=== PATIENT | female | born 1995 | race Caucasian/White ===

== ENCOUNTER 2022-02-03 02:30 | Emergency (ER) | payer BC, SELFPAY ==
[2022-02-03 02:38] VITALS: BP 128/81; PULSE 111; RESP 24; TEMP 36.8; O2SAT 95
--- NOTE | 2022-02-03 03:03 | ED_ITS ---
HPI - Asthma General Time Seen by Provider: 03:03 Date Seen: 02/03/22 Chief Complaint: Asthma Stated Complaint: Asthma attack Time Seen by Provider: 02/03/22 03:03 Source: patient, RN notes reviewed and old records reviewed Mode of arrival: ambulatory Limitations: no limitations History of Present Illness HPI Narrative: Linda is a very pleasant 26-year-old female with a known history of asthma and recent challenges obtaining her asthma rescue inhaler who comes to the emergency room for evaluation of difficulty breathing. Patient noted that she has been experiencing environmental allergies and approximately 3 days ago noticed increased work of breathing and wheezing. Last week she had run out of her inhalers and had multiple attempts at contacting her clinic. She was supposed to have had the inhaler by January 29 and then again today but was unable to get them. She initially went to the [facility] ED but because of the wait elected to come down to [place]. She denies a fever or chills. She denies any vomiting. She denies any possibility of . She denies chest pain or cough production. MD complaint: asthma attack Onset (ago): day(s) Severity: moderate Context: ran out of meds Related Data Current Asthma Therapy: inhaled bronchodilator and inhaled steroid Home Medications Medication Instructions Recorded Confirmed albuterol sulfate 2.5 mg/3 mL 2.5 mg inhalation Q4H PRN 12/12/21 12/12/21 (0.083 %) solution for nebulization albuterol sulfate 90 mcg/actuation 2 puff inhalation Q4H PRN 12/12/21 12/12/21 aerosol inhaler (ProAir HFA) fluticasone 250 mcg-salmeterol 50 1 inh inhalation Q12H 12/12/21 12/12/21 mcg/dose blistr powdr for inhalation (Wixela Inhub) Previous Rx's Medication Instructions Recorded albuterol sulfate 90 mcg/actuation 2 puff inhalation QID PRN 02/03/22 aerosol inhaler shortness of breath or wheezing #8.5 grams prednisone 20 mg tablet 20 mg PO BID #8 tabs 02/03/22 Allergies Allergy/AdvReac Type Severity Reaction Status Date / Time ethinyl estradiol Allergy Mild Congested Verified 12/12/21 11:51 [From Seasonale (91)] levonorgestrel Allergy Mild Congested Verified 12/12/21 11:51 [From Seasonale (91)] Bananas Allergy Intermediate itchy Uncoded 12/12/21 11:51 throat Review of Systems Status of ROS Reports: 6 or more systems reviewed and unremarkable except as noted in History and below Const Denies: fever or chills ENMT Denies: throat pain or difficulty swallowing Cardio Reports: shortness of breath with exertion; Denies: chest pain or swelling of feet/ankles Resp Reports: shortness of breath, cough and wheezing GI Denies: abdominal pain, nausea, vomiting or difficulty swallowing Allergy/Immuno Reports: wheezing PFSH PFS Social History Smoking Status: Former smoker Do you use any of these nicotine containing products: None Second hand tobacco smoke exposure: No How often do you have a drink containing alcohol: monthly or less How often do you have six or more drinks on one occasion: Less than monthly AUDIT-C Alcohol total score: 2 Non-prescribed substance use: denies use Little interest or pleasure in doing things: not at all Feeling down, depressed, or hopeless: not at all service: No Exam Narrative: Exam Narrative: Past medical history: Tobacco use Asthma Family history: For patient healthy Social history: Occasional alcohol use, has quit smoking. No drug use. Works at [employer] in [place] Const: Vital Signs, click to edit/add: Vital Signs - 24 hr 02/03/22 02:38 02/03/22 04:20 Temperature 98.2 F 98.1 F Pulse Rate [Right Pulse Oximeter] 111 H 95 Respiratory Rate 24 18 Blood Pressure [Ri ght Upper Arm] 128/81 Pulse Oximetry 95 Oxygen Delivery Me thod Room Air Documenting provider has reviewed patient's vital signs: yes Common normals: no apparent distress, oriented x3 and no limitations General appearance: cooperative and comfortable HENMT: Common normals: normocephalic, external ears normal and external nose normal Head and scalp: normocephalic Face and sinus: normal facial exam Nose: external nose normal External ear: external ears normal Mouth: oral and palatal mucosa normal Eye: General eye: normal appearance of both eyes Chest: Chest: symmetrical chest wall rise Resp: Common normals: no use of accessory muscles Effort & inspection: symmetric chest movement, tachypneic and decreased respiratory effort Auscultation: wheezes; no crackles Cardio: Common normals: regular rhythm Rate: tachycardic Rhythm: regular rhythm GI: Common normals: soft to palpation Palpation: soft Extremity: Common normals: no pedal edema Neuro: Common normals: oriented x3 Psych: Common normals: mental status grossly normal Course Course Hospital Course: At this time differential diagnosis includes but is not limited to asthma ex acerbation, bronchitis, pneumonia, COVID. Patient will start with a DuoNeb, 60 mg of prednisone p.o.. Will also do a chest x-ray and a COVID swab. Reevaluation(s) Reevaluation #1: Patient is remarkably improved after DuoNeb with clear lung sounds bilaterally. Vital Signs Vital signs: Initial Vital Signs Temperature 98.2 F 02/03/22 02:38 Temperature Source Temporal Artery Scan 02/03/22 02:38 Pulse Rate 111 H 02/03/22 02:38 Pulse Rhythm 02/03/22 02:38 Respiratory Rate 24 02/03/22 02:38 Blood Pressure 128/81 02/03/22 02:38 Blood Pressure Mean 96 02/03/22 02:38 Blood Pressure Position Sitting 02/03/22 02:38 Pulse Oximetry 95 02/03/22 02:38 Oxygen Delivery Method 02/03/22 02:38 Vital Signs Temperature 98.2 F 02/03/22 02:38 Pulse Rate 111 H 02/03/22 02:38 Respiratory Rate 24 02/03/22 02:38 Blood Pressure 128/81 02/03/22 02:38 Pulse Oximetry 95 02/03/22 02:38 Oxygen Delivery Method 02/03/22 02:38 Temperature 98.1 F 02/03/22 04:20 Pulse Rate 95 02/03/22 04:20 Respiratory Rate 18 02/03/22 04:20 Blood Pressure 128/81 02/03/22 02:38 Pulse Oximetry 95 02/03/22 02:38 Oxygen Delivery Method 02/03/22 02:38 MDM - Asthma MDM Narrative Medical decision making narrative: 1. Asthma [id number] is negative for pneumonia and COVID is negative. patient was unable to obtain her rescue inhaler refill last week and has been dealing with increased environmental allergies. She has continued to use inhaled steroids. She is remarkably better after a duo nebulizer here in the emergency room. She also received 60 mg of p.o. prednisone. Will have her continue the prednisone at 20 mg p.o. b.i.d. starting tomorrow morning. This will go on for 4 days. Also will call in an inhaler for her to the [facility] on [address] in [place]. 2. Disposition-home. Return as needed. Medical Records Attestation: I reviewed the patient's medical records. Lab Data Attestation: I reviewed the patient's lab results. Labs: Lab Results 02/03/22 Range/Units 03:09 SARS-CoV-2 (PCR) Negative SARS-CoV-2 (Negative) Influenza Type A (PCR) Negative PCR FLU A (Negative) Influenza Type B (PCR) Negative PCR FLU B (Negative) Imaging Data Chest x-ray: Attestation: I have reviewed the pertinent imaging results. My impression: Questionable increased perihilar lung markings. Radiologist's impression: No acute findings Discharge Plan Discharge Clinical Impression: Asthma with acute exacerbation Patient Disposition: Home, Self-Care Condition: Improved Additional Instructions: Continue prednisone starting tomorrow morning 20 mg twice daily for 4 days. Albuterol inhaler as rescue. Seek medical attention for worsening symptoms. Prescriptions: New prednisone 20 mg tablet 20 mg PO BID Qty: 8 0RF albuterol sulfate 90 mcg/actuation HFA aerosol inhaler 2 puff inhalation QID PRN (Reason: shortness of breath or wheezing) Qty: 8.5 1RF No Action albuterol sulfate [ProAir HFA] 90 mcg/actuation HFA aerosol inhaler 2 puff inhalation Q4H PRN fluticasone propion-salmeterol [Wixela Inhub] 250-50 mcg/dose blister with device 1 inh inhalation Q12H albuterol sulfate 2.5 mg /3 mL (0.083 %) solution for nebulization 2.5 mg inhalation Q4H PRN Follow Up/Referrals: Luba Montesinos PA-C [Primary Care Provider] - Stand Alone Forms: [email or web address] Info Instructions
--- NOTE | 2022-02-03 03:09 | CRLHL7_ITS ---
For Patients: As a result of the Century Cures Act, medical imaging exams and procedure reports are released immediately into your electronic medical record. You may view this report before your referring provider. If you have questions, please contact your health care provider. HISTORY: Asthma flare. COMPARISON: Chest two views from 01/24/2020 FINDINGS: A portable erect AP view of the chest was obtained at 0329 hours. The lungs remain clear. No focal or diffuse infiltrates are present. The heart remains normal in size. The mediastinum is normal in appearance. The osseous structures are normal in appearance for the patient`s age. IMPRESSION: Normal portable chest single view. Dictated by Kendall Merino MD @ 02/03/2022 3:52:36 AM (Electronically Signed)
[2022-02-03] MEDS: IPRAT-ALBUT 0.5-2.5 MG/3 ML NEB 1 NEB IH (03:14)
[2022-02-03] MEDS: predniSONE 20 MG TABLET 60 MG PO (03:23)
[2022-02-03 04:00] LABS: PCR FLU A Negative PCR FLU A (Negative); PCR FLU B Negative PCR FLU B (Negative)
[2022-02-03 04:11] LABS: SARS PCR* Negative SARS-CoV-2 (Negative)
[2022-02-03 04:20] VITALS: PULSE 95; RESP 18; TEMP 36.7
== END 2022-02-03 04:21 | disposition home or self-care (01) ==
PROVIDERS: Emergency Provider Family Medicine; PCP Physician Assistant Medical
DX: J45.901 Unspecified asthma with (acute) exacerbation (principal)
CPT/HCPCS: 71045; 87502; 87635; 94640; 99283; 99284; J7512

== ENCOUNTER 2022-04-10 14:02 | Outpatient (CLI) | payer BC, SELFPAY ==
[2022-04-10 17:48] LABS: Hepatitis B Surface Antigen* Negative (Negative)
[2022-04-10 18:06] LABS: Hepatitis C Virus Antibody* Negative (Negative)
[2022-04-10 18:57] LABS: HIV 1/2/P24 Combo Screen* Negative (Negative)
[2022-04-12 21:49] LABS: Rubella Antibody IgG 48.1 IU/mL; Varicella-Zoster Virus Ab, IgG 270.6 IV
[2022-04-13 01:47] LABS: Rapid Plasma Reagin (RPR) Non Reactive (Non Reactive)
== END 2022-04-10 14:03 | disposition home or self-care (01) ==
PROVIDERS: PCP Physician Assistant Medical; Visit Provider Advanced Practice Midwife
DX: Z34.80 Encounter for supervision of other normal pregnancy, unspecified trimester (principal)
CPT/HCPCS: 76817; 86592; 86703; 86762; 86787; 86803; 86850; 86900; 86901; 87086; 87340

== ENCOUNTER 2022-07-09 14:02 | Outpatient (CLI) | payer BC, SELFPAY ==
--- NOTE | 2022-07-09 14:00 | US_ITS ---
Patient: DUDLEY JULES Facility:?[facility] Patient ID:?[id number] Site Patient ID:?[id number]. Site :?[id number] Study:?US-OB Pelvis BFAS-07/09/2022 3:11:03 PM Ordering Physician:?UNKNOWN UNKNOWN Final Report: INDICATION: 27 year-old female. Evaluate anatomy. COMPARISON: April 10, 2022. TECHNIQUE: Real time alva scale imaging of the fetus was performed. FINDINGS: Sonographic imaging demonstrates a single living intrauterine gestation. Fetus demonstrates a regular cardiac rate of 141 beats per minute. Fetus has a vertex orientation and longitudinal lie. The placenta lies anteriorly without evidence of placenta previa. Amniotic fluid volume appears normal. Single deepest vertical pocket: 4.9 cm. The cervix is closed and measures 4.1 cm in length. The composite ultrasound gestational age is calculated at 20 weeks 4 days with an estimated sonographic due date of November 22, 2022. The estimated weight is 370 grams which lies at the 88th percentile. The following biometric measurements were obtained: Biparietal diameter: 4.8 cm/20 weeks 4 days 76% Head circumference: 18.1 cm/20 weeks 3 days 72% Abdominal circumference: 15.5 cm/20 weeks 5 days 72% Femur length: 3.4 cm/20 weeks 5 days 72% The HC/AC ratio measures: 1.16 range (1.07-1.25) On anatomic survey, there is a normal appearance of the cerebral ventricles, cisterna magna and cerebellum. The nose, lips, and facial profile appear normal. The cervical, thoracic and lumbar spine are well visualized and appear normal. There is a normal four-chamber heart view and the left and right ventricular outflow tracts appear normal. diaphragm, stomach, kidneys and bladder appear normal. There is a normal three-vessel cord and cord insertion site. The four extremities appear normal. When compared to the prior study there has been appropriate growth and maturation in the interval. IMPRESSION: Normal OB ultrasound exam with concordance of clinical and sonographic dating. No intrinsic abnormalities noted on anatomic survey. Dictated by Papo Bruce MD @ 07/09/2022 5:05:18 PM Signed by:?Papo Bruce MD @07/09/2022 5:05:18 PM (Electronic Signature)
== END 2022-07-09 14:03 | disposition home or self-care (01) ==
LOC: US 14:03
PROVIDERS: PCP Physician Assistant Medical; Visit Provider Advanced Practice Midwife
DX: Z34.92 Encounter for supervision of normal pregnancy, unspecified, second trimester (principal); Z3A.20 20 weeks gestation of pregnancy
CPT/HCPCS: 76805

== ENCOUNTER 2022-09-03 11:20 | Outpatient (CLI) | payer BC, SELFPAY | END 2022-09-03 11:21 | disposition home or self-care (01) | LOC: NFLDREF 09-06 07:54 | PROVIDERS: PCP Physician Assistant Medical; Referring Provider Physician Assistant Medical; Visit Provider Advanced Practice Midwife | DX: O99.112 Other diseases of the blood and blood-forming organs and certain disorders involving the immune mechanism complicating pregnancy, second trimester (principal); D69.6 Thrombocytopenia, unspecified; Z3A.27 27 weeks gestation of pregnancy | CPT/HCPCS: 86592 ==

== ENCOUNTER 2022-11-18 22:41 | Outpatient (CLI) | payer BC, SELFPAY ==
[2022-11-18 22:52] VITALS: BP 129/80; PULSE 94; RESP 16; TEMP 36.6
[2022-11-18 23:34] LABS: Appearance Urine Clear (Clear); Bilirubin Urine 1+ (Negative); Blood Urine Negative (Negative); Color Urine Amber (Yellow); Glucose Urine Negative (Negative); Ketones Urine Trace (Negative); Leukocyte Esterase Urine Trace (Negative); Nitrite Urine Negative (Negative); Protein Urine 1+ (Negative)
[2022-11-18 23:42] LABS: Yeast No Yeast Seen (None Seen)
[2022-11-18 23:42] LABS: Bacteria Urine Few; RBC Urine 0-2 (0-2); Squamous Epithelial Cell Urine Few (None-Few); WBC Urine 0-2 (0-5)
[2022-11-18 23:43] LABS: Clue Cells <20% Clue Cells Seen (None Seen); Trichomonas No Trichomonas Seen (None Seen)
--- NOTE | 2022-11-19 00:10 | PC.OBNST ---
NST Note NST Note Start: 11/18/22 22:44 Freq: ONCE Status: Active Protocol: Document 11/18/22 23:58 WAYNE (Rec: 11/19/22 00:10 WAYNE [id number]) NST Note 3 Para (# of births) 2 EDC 11/27/22 Gestational Age In Weeks & Days 38 Weeks & 6 Days Patient Presented with Complaint(s) of Other Other Complaints Patient reports pelvic pain and describes it as Fire crouch. Reactive Yes Appropriate for Gestational Age Yes KENDAL Graves RN Date 11/19/22 Reactive Yes Appropriate for Gestational Age Yes KENDAL Plummer RNC Date 11/19/22 OB NST charge Yes Complete NST Note via Write Note Yes The provider's electronic signature indicates the NST is reactive/appropriate for gestational age. *Note to provider: If an addendum is required, open the patient's chart and click on the note under the Nurse/Allied Health tab.
== END 2022-11-19 00:06 | disposition home or self-care (01) ==
LOC: OB OUT 22:42 → OB 22:42
PROVIDERS: PCP Physician Assistant Medical; Visit Provider Advanced Practice Midwife
DX: Z34.93 Encounter for supervision of normal pregnancy, unspecified, third trimester (principal); Z3A.38 38 weeks gestation of pregnancy
CPT/HCPCS: 59025; 81003; 81015; 87086; 87210; 99213

== ENCOUNTER 2024-08-29 14:00 | Outpatient (CLI) | payer BC, SELFPAY | END 2024-08-29 14:01 | disposition home or self-care (01) | PROVIDERS: PCP Physician Assistant Medical; Visit Provider Physician Assistant Medical | DX: R63.5 Abnormal weight gain (principal); Z13.220 Encounter for screening for lipoid disorders | CPT/HCPCS: 80053; 80061; 84443 ==

== ENCOUNTER 2025-02-27 19:49 | Emergency (ER) | payer BC, SELFPAY ==
--- OUTSIDE RECORDS SUMMARY | 2025-02-27 19:52 | XMS_ITS | Clinical Summary ---
Author Organization [facility] Address [address] [place] [id number] Care Team Providers Care Youth Liaison Officer Name Role Phone Maninder Montenegro MD Primary Care Provider + [phone] Allergies No known active allergies Medications CLARITIN REDITABS ORAL 1 po prn 0 02/22/2007 Activ e PROAIR HFA 90 mcg/Actuation inhalerIndicatio ns:Wheezing INHALE 2 TO 4 PUFFS BY MOUTH EVERY 4 HOURS NEEDED 8.5 g 0 06/18/2010 Active FLUoxetine (PROZAC) 20 mg capsule Take 20 mg by mouth every morning. Active trimethoprim-sul famethoxazole, 160-800 mg, (BACTRIM DS) tabletIndication s:Urinary tract infection without hematuria, site unspecified Take 1 tablet by mouth 2 times daily. One po bid 20 tablet 04/21/2016 Active Active Problems Problem Noted Date Diagnosed Date Wheezing 10/10/2007 Allergic rhinitis, cause unspecified 09/12/2006 Immunizations Immunization Administration Dates Next Due DTaP 02/02/2002, 9,1997,1997, 1997 HIB PRP-OMP (PedvaxHIB) 06/19/1998,1997,,1997 Hepatitis B (Peds) 1997,1997, 997 Inactivated Polio Vaccine 02/02/2002 Influenza, IIV3 (Age >=3 years) 07/23/2006 MMR 02/02/2002,06/19/1998 Oral Polio Vaccine 06/19/1998,1997, 997 Family History Relation Name Status Comments Mother Radha Alive Social History Tobacco Use Types Packs/Day Years Used Date Smoking Tobacco: Never Tobacco Cessation:Counseling Given: No Alcohol Use Standard Drinks/Week Comments No 0 (1 standard drink = 0.6 oz pur e alcohol) Comments No Sex and Gender Information Value Date Recorded Sex Assigned at Not on file Legal 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 Gender Identity Not on file Sexual Orientation Not on file Obstetrics History Last Filed Vital Signs Vital Sign Reading Time Taken Comments Blood Pressure 113/72 04/21/2016 6:47 PM COMMUNITY DEVELOPMENT WORKER Pulse 78 04/21/2016 6:47 PM COMMUNITY DEVELOPMENT WORKER Temperature 36.7 C (98 F) 04/21/2016 6:47 PM COMMUNITY DEVELOPMENT WORKER Respiratory Rate 12 04/21/2016 6:47 PM COMMUNITY DEVELOPMENT WORKER Oxygen Saturation 99% 04/21/2016 6:47 PM COMMUNITY DEVELOPMENT WORKER Inhaled Oxygen Concentration - - Weight 69.9 kg (154 lb) 04/21/2016 6:47 PM COMMUNITY DEVELOPMENT WORKER Height 167.6 cm (5' 6) 04/21/2016 6:47 PM COMMUNITY DEVELOPMENT WORKER Body Mass Index 24.86 04/21/2016 6:47 PM COMMUNITY DEVELOPMENT WORKER Plan of Treatment Health Maintenance Due Date Last Done Comments Tetanus booster 2008 Depression screening for age 12+ 2009 HIV for age 15-65 2012 Hepatitis C screening for ag e 18-79 2015 BMI (ht and wt on same day) for age 18+ 04/21/2017 04/21/2016 HPV series for age 9-45 (1 - 3-dose SCDM series) 2024 COVID-19 vaccine series (2023- season) 2025 Influenza Vaccine (#1) 2025 07/23/2006 Pap test for age 21-65 01/06/2026 , 09/19/2018, 09/19/2018 RSV vaccine for adults or (1 - 1-dose 75+ series) 2072 Hepatitis B series for 19+ Completed 09/03, 1997, 1997 Pneumococcal series for age 6-49 Aged Out No longer eligible b ased on patient's age to complete this topic Procedures Procedure Name Priority Date/Time Associated Diagnosis Comments HPV HIGH RISK Routine 01/06/2023 2:15 PM CDT from Last 3 Months or Most Recently Relevant to Health Maintenance Results * HPV HIGH RISK (01/06/2023 2:15 PM CDT) TYPE 16 Negative Negative 01/12/2023 1:49 PM CDT [facility] TYPE 18 Negative Negative 01/12/2023 1:49 PM CDT [facility] OTHER HIGH RISK TYPES Negative Negative 01/12/2023 1:49 PM CDT [facility] Other (Cervical) 01/06/2023 2:15 PM CDT 01/08/2023 5:22 PM CDT Narrative [facility] - 01/12/2023 1:49 PM CDT HPV types 16, 18, 31, 33, 35, 39, 45, 51, 52, 56, 58, 59, 66 and 68 DNA were undetectable or below the pre-set threshold. Methodology: Cuca Pawel 4800 HPV Test Amrita ROSALES MICROBIOLOGY Final Resu lt [facility] [address] [place] [address], from Last 3 Months or Most Recently Relevant to Health Maintenance Insurance [facility] Care Teams Youth Liaison Officer Relationship Specialty Start Date End Date Maninder Montenegro MD PCP - General 08/30/14
--- OUTSIDE RECORDS SUMMARY | 2025-02-27 19:52 | XMS_ITS | Clinical Summary ---
Author Organization [place] Address [address] [place] [id number] Care Team Providers Care General Car Supervisor Yard Name Role Phone Clinic, [facility] Primary Care Provider Allergies Active Allergy Reactions Criticality Noted Date Comments Banana 05/19/2021 Cats 04/01/2012 Mold 04/01/2012 Pollen Extract 04/01/2012 Seasonal Allergies 04/01/2012 Medications Loratadine (CLARITIN PO) Take by mouth. A ctive albuterol (2.5 MG/3ML) 0.083% nebulizer solutionIndicati ons:Mild persistent asthma with exacerbation Take 3 mLs by nebulization every 6 hours as needed for shortness of breath / dyspnea. 30 vial 0 2 Active albuterol (PROAIR HFA/PROVENTIL HFA/VENTOLIN HFA) 108 (90 Base) MCG/ACT inhalerIndicatio ns:Mild persistent asthma Inhale 2 puffs into the lungs every 6 hours 8.5 g 9 Active fluticasone-salm eterol (ADVAIR) 100-50 MCG/DOSE inhaler Inhale 1 puff into the lungs every 12 hours Active WIXELA INHUB 250-50 MCG/DOSE inhaler INHALE 1 PUFF BY MOUTH TWICE DAILY 1 Active Active Problems Problem Noted Date Diagnosed Date Late care affecting 1 ASCUS with positive high risk HPV cervical 09/19 Overview (07/01/2022): 09/19/2018 ASCUS +HPV - no colpo done - repeat Pap/HPV 05/21/2021 NIL pap, Neg HPV (age 26). Plan pap in 1 year 05/08/22 Reminder letter 06/05/2022 Reminder call - lm 07/01/2022 Lost to follow-up for pap tracking Other persistent mood (affective) disorders 10/13 Suicide attempt 11/08/2015 Suicidal behavior 11/05/2015 Mild persistent asthma 04/05/2012 Environmental allergies 04/05/2012 Immunizations Immunization Administration Dates Next Due DTAP (<7y) 02/02/2002, 9,1997,1997,1997 HIB (PRP-T) 1997,1997,1997 HepB 1997, 8,1997,1996 Influenza (IIV3) PF 07/23/2006 Influenza Vaccine >6 months,quad, PF 05/21/2021 MMR (MMRII) 02/02/2002,06/19/1998 Pneumococcal 23 valent 11/06/2015 Poliovirus, inactivated (IPV) 02/02/2002 ,06/19/1998,1997,1996 TDAP (Adacel,Boostrix) 01/28/2010 Varicella (Varivax) 03/03/2010,01/28/2010 Family History Medical History Relation Comments Family History Negative Father Diabetes Maternal Grandfather Family History Negative Mother Anxiety Disorder Paternal Grandmother Relation Status Comments Father Alive Maternal Grandfather Mother Alive Paternal Grandmother Social History Tobacco Use Types Packs/Day Years Used Date Smoking Tobacco: Former Smokeless Tobacco: Never Tobacco Cessation:Counseling Given: No Alcohol Use Standard Drinks/Week Comments No 0 (1 standard drink = 0.6 oz pur e alcohol) PHQ-2 Answer Date Recorded PHQ-2 Score 0 05/19/2021 Adolescent Education Answer Date Record ed Getting School Help Needed Not on file 03/15 Comments No Sex and Gender Information Value Date Recorded Sex Assigned at Not on file Legal Sex Female 3:32 AM BUSINESS RISK CONSULTANT Gender Identity Not on file Sexual Orientation Not on file 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 Not on file Not on file Last Filed Vital Signs Vital Sign Reading Time Taken Comments Blood Pressure 124/76 02/03/2022 1:06 AM CDT Pulse 105 02/03/2022 1:06 AM CDT Temperature 36.8 C (98.3 F) 02/03/2022 1:06 AM CDT Respiratory Rate 18 02/03/2022 1:06 AM CDT Oxygen Saturation 97% 02/03/2022 1:06 AM CDT Inhaled Oxygen Concentration - - Weight 75.7 kg (166 lb 14.4 oz) 05/21/2021 8:36 AM BUSINESS RISK CONSULTANT Height 167.6 cm (5' 6) 06/24/2017 11:4 4 AM BUSINESS RISK CONSULTANT Body Mass Index 26.94 06/24/2017 11:44 AM BUSINESS RISK CONSULTANT Plan of Treatment Health Maintenance Due Date Last Done Comments ADVANCE CARE PLANNING 1997 ANNUAL REVIEW OF HM ORDERS 1997 YEARLY PREVENTIVE VISIT 2000 ASTHMA ACTION PLAN 07/29/2013 07/29/2012, 04/05/2012 PNEUMOCOCCAL VACCINE: PEDIATRICS (0 to 5 YEARS) AND AT-RISK PATIENTS (6 to 49 YEARS) (2 of 2 - PCV) 11/05/2016 11/06/2015 ASTHMA CONTROL TEST 11/28/2018 05/30/2018 PAP FOLLOW-UP 05/21/2022 05/21/2021, 040 01/2019, 09/19/2018 PHQ-2 (once per calendar year) 2024 05/19/2021 COVID-19 VACCINE ( - season) 2025 INFLUENZA VACCINE (#1) 2025 05/21/2021, 2006 DTAP/TDAP/TD VACCINE (8 - Td or Tdap) 06/29/2028 06/29/2018, 01/28/2010, 02/02/2002, Additional history exists ZOSTER VACCINE (1 of 2) 2047 HEPATITIS B VACCINE Completed 1997, 1997, 1997, Additional history exists CHLAMYDIA SCREENING Discontinued 05/21/2021 HEPATITIS C SCREENING Completed 05/21/2021 HIV SCREENING Completed 05/21/2021 PAP Discontinued 05/21/2021, 04/0 01/2019, 09/19/2018 HPV VACCINE (No Doses Required) Completed MENINGITIS VACCINE Aged Out No longer eligible based on patient's age to complete this topic Procedures Procedure Name Priority Date/Time Associated Diagnosis Comments GYNECOLOGIC CYTOLOGY Routine 05/21/2021 9:19 AM BUSINESS RISK CONSULTANT Screening for malignant neoplasm of cervix ASCUS with positive high risk HPV cervical CHLAMYDIA TRACHOMATIS PCR Routine 05/21/2021 9:19 AM BUSINESS RISK CONSULTANT Screen for STD (sexually transmitted disease) HIV ANTIGEN ANTIBODY COMBO Routine 05/21/2021 9:19 AM BUSINESS RISK CONSULTANT Supervision of high risk in second trimester Anxiety in , antepartum HEPATITIS C ANTIBODY Routine 05/21/2021 9:19 AM BUSINESS RISK CONSULTANT Supervision of high risk in second trimester Anxiety in , antepartum ASTHMA ACTION PLAN Routine 07/29/2012 from Last 3 Months or Most Recently Relevant to Health Maintenance Results * HIV Antigen Antibody Combo (05/21/2021 9:19 AM BUSINESS RISK CONSULTANT) HIV Antigen Antibody Combo Nonreactive Nonreactive 05/21/2021 4:00 PM BUSINESS RISK CONSULTANT [facility] Comment:HIV-1 p24 Ag & HIV-1 /HIV-2 Ab Not Detected Blood STRUCTURE OF RIGHT UPPER LIMB / Unknown Venipuncture / Unknown 05/21/2021 9:19 AM BUSINESS RISK CONSULTANT 05/21/2021 9:19 AM BUSINESS RISK CONSULTANT us Tay Gupta MD LAB - BLOOD ORDERABLES Final R esult [facility] Special[facility] Core Lab [address], [address] [place] [address], [facility] [phone] * Pap imaged thin layer screen with HPV - recommended age 30 - 65 (05/21/2021 9:19 AM BUSINESS RISK CONSULTANT) Interpretation Negative for Intraepithelial Lesion or Malignancy (NILM) 05/23/2021 12:44 PM BUSINESS RISK CONSULTANT [facility] at 1244 BUSINESS RISK CONSULTANT Comment Papanicolaou Test Limitations: Cervical cytology is a screening test with limited sensitivity, and regular screening is critical for cancer prevention. Pap tests are primarily effective for the diagnosis/prevent ion of squamous cell carcinoma, not adenocarcinoma or other cancers. 05/23/2021 12:44 PM BUSINESS RISK CONSULTANT [facility] Specimen Adequacy Satisfactory for evaluation, endocervical/martinez sformation zone component absent 05/23/2021 12:44 PM BUSINESS RISK CONSULTANT [facility] Clinical Information 05/23/2021 12:44 PM BUSINESS RISK CONSULTANT [facility] LMP/Menopause Date 01/23/2021 05/23/2021 12:44 PM BUSINESS RISK CONSULTANT [facility] Reflex Testing Yes regardless of result 05/23/2021 12:44 PM BUSINESS RISK CONSULTANT [facility] Previous Abnormal? Yes 05/23/2021 12:44 PM BUSINESS RISK CONSULTANT [facility] Previous Abnormal Diagnosis ASCUS pap and HPV 05/23/2021 12:44 PM BUSINESS RISK CONSULTANT [facility] Performing Labs The technical component of this testing was completed at [facility] 05/23/2021 12:44 PM BUSINESS RISK CONSULTANT [facility] Brushing CERVIX UTERI STRUCTURE / Unknown 05/21/2021 9:19 AM BUSINESS RISK CONSULTANT 05/21/2021 12:06 PM BUSINESS RISK CONSULTANT Tay Gupta MD LAB - BEAKER AP Final Result [facility] [address] [place] [id number], [facility] [phone] * Hepatitis C antibody (05/21/2021 9:19 AM BUSINESS RISK CONSULTANT) Hepatitis C Antibody Nonreactive Nonreactive 05/21/2021 4:00 PM BUSINESS RISK CONSULTANT [facility] Blood STRUCTURE OF RIGHT UPPER LIMB / Unknown Venipuncture / Unknown 05/21/2021 9:19 AM BUSINESS RISK CONSULTANT 05/21/2021 9:19 AM BUSINESS RISK CONSULTANT Narrative [facility] - 05/21/2021 4:00 PM BUSINESS RISK CONSULTANT Assay performance characteristics have not been established for newborns, infants, and children. Tay Gupta MD LAB - BLOOD ORDERABLES Final R esult [facility] Special[facility] Lab [address], [address] [place] [address], [facility] [phone] * CHLAMYDIA TRACHOMATIS PCR (05/21/2021 9:19 AM BUSINESS RISK CONSULTANT) Chlamydia trachomatis Negative Negative 05/22/2021 12:30 PM BUSINESS RISK CONSULTANT [facility] Comment:A negative result by clerical adjuster mediated amplification does not preclude the presence of C. trachomatis infection because results are dependent on proper and adequate collection, absence of inhibitors and sufficient rRNA to be detected. Swab CERVIX UTERI STRUCTURE / Unknown Non-blood Collection / Unknown 05/21/2021 9:19 AM BUSINESS RISK CONSULTANT 05/21/2021 12:07 PM BUSINESS RISK CONSULTANT us Tay Gupta MD LAB - MICRO GENERAL ORDERABLES Final Result [facility] Infectious Diseases Diagnostic Lab ([facility]) [address], [address] [place] [address], [facility] [phone] * Asthma Action Plan (AAP) (07/29/2012) us Maninder Montenegro MD PROCEDURES Final Result from Last 3 Months or Most Recently Relevant to Health Maintenance Insurance [facility] Advance Directives For more information, please contact: [phone] * Full Code (Latest Code Status on File) Date Activated Date Inactivated Comments 11/05/2015 3:52 AM 11/08/2015 2:48 PM Care Teams General Car Supervisor Yard Relationship Specialty Start Date End Date Clinic, [facility] [address] [place] [address] PCP - General 03/05/19
[2025-02-27 20:04] VITALS: BP 96/66; PULSE 104; RESP 18; TEMP 36.6; O2SAT 98; BMI 25.8
[2025-02-27 20:19] LABS: Appearance Urine Slightly Cloudy (Clear)
[2025-02-27 20:26] LABS: Ur HCG Qualitative* Negative (Negative)
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
--- NOTE | 2025-02-27 20:39 | CRLHL7_ITS ---
For Patients: As a result of the Cures Act, medical imaging exams and procedure reports are released immediately into your electronic medical record. You may view this report before your referring provider. If you have questions, please contact your health care provider. INDICATION: Right lower quadrant abdominal pain day TECHNIQUE: CT Abdomen and pelvis with i.v. contrast. Coronal and sagittal reformats were obtained. CONTRAST: 79 mL Isovue 370 COMPARISON: None FINDINGS: Lower chest: Unremarkable. Liver: Unremarkable. Spleen: Unremarkable. Pancreas: Unremarkable. Gallbladder: Unremarkable. Kidney: Unremarkable. No kidney or ureteral stones or obstruction seen. Adrenal: Unremarkable. Bowel: The stomach, small bowel, and colon are unremarkable. The appendix is normal in appearance and size. Vascular: Unremarkable. Lymph: Unremarkable. Peritoneum: Unremarkable. No pneumoperitoneum is seen. No significant ascites is noted. Pelvis: There is a cyst or follicle present within the right ovary measuring 2 cm. There is a round hyperdense lesion along the uterine fundus measuring 3 cm and approximately 116 HU. Soft tissue: Unremarkable. Bone: Unremarkable for age. IMPRESSION: 1. There is a round hyperdense lesion along the uterine fundus measuring 3 cm and approximately 116 HU. This may be due to a degenerating uterine fibroid. Dictated by Glenn Canada MD @ 02/27/2025 9:44:03 PM Please note that all CT scans at this facility use dose modulation, iterative reconstruction, and/or weight-based dosing when appropriate to reduce radiation dose to as low as reasonably achievable. Dictated by: Glenn Canada MD @ 02/27/2025 21:44:06 (Electronically Signed)
[2025-02-27 20:53] LABS: Hematocrit* 38.0 % (33.0-51.0); Hemoglobin* 13.0 gm/dL (12.0-16.0); Immature Granulocytes Abs Auto 0.02 K/uL (0.00-0.30); Immature Granulocytes Pct Auto 0.2 %; Lymphocytes Absolute Auto 1.97 K/uL (0.90-2.90); Mean Corpuscular HGB Conc 34 gm/dL (32-36); Mean Corpuscular Hemoglobin 32 pg (26-34); Mean Corpuscular Volume 93 fL (80-100); RDW Coefficient of Variation % 12.8 % (11.5-15.5); Red Blood Count* 4.10 m/uL (4.00-5.20); White Blood Count* 9.18 K/uL (4.50-11.00)
[2025-02-27 21:02] LABS: Slide Review Reflex No
[2025-02-27 21:04] LABS: Chloride* 104 mmol/L (96-114); Potassium* 3.6 mmol/L (3.6-5.1); Sodium* 139 mmol/L (135-149)
[2025-02-27 21:07] LABS: Blood Urea Nitrogen* 8 mg/dL (5-24); Creatinine* 0.9 mg/dL (0.5-1.5); Est. Creatinine Clearance* 87.90; Estimated Glomerular Filt Rate 90 ml/min
[2025-02-27 21:08] LABS: Anion Gap 4 mEq/L (7-15); Calcium* 9.0 mg/dL (8.4-10.6); Carbon Dioxide* 31 mmol/L (20-32); Glucose* 94 mg/dL (60-115)
[2025-02-27 22:10] VITALS: BP 110/70; PULSE 90; RESP 18; TEMP 36.6; O2SAT 98
[2025-02-27 22:11] VITALS: BP 110/70; PULSE 90; RESP 18; TEMP 36.6
== END 2025-02-27 22:11 | disposition home or self-care (01) ==
PROVIDERS: Emergency Provider Family Medicine; PCP Physician Assistant Medical
DX: N83.201 Unspecified ovarian cyst, right side (principal); D25.9 Leiomyoma of uterus, unspecified
CPT/HCPCS: 36415; 74177; 80048; 81001; 81025; 85025; 87086; 99284; J7030; Q9967

== ENCOUNTER 2025-03-13 16:29 | Outpatient (CLI) | payer BC, SELFPAY ==
--- NOTE | 2025-03-13 16:45 | CRLHL7_ITS ---
For Patients: As a result of the Century Cures Act, medical imaging exams and procedure reports are released immediately into your electronic medical record. You may view this report before your referring provider. If you have questions, please contact your health care provider. INDICATION: Heavy frequent menstruation COMPARISON: CT 02/27/2025 TECHNIQUE: 2D alva-scale and color Doppler images were acquired of the pelvis using a transabdominal and transvaginal approach. Transvaginal imaging performed to better visualize the endometrial stripe and ovaries. FINDINGS: Solid heterogeneously hypoechoic and vascular structure within the subserosal right uterus corresponding to the CT which measures 3.5 x 2.7 x 3.5 cm. Uterus measures 9.0 cm in length by 5.5 cm in AP diameter by 6.8 cm in transverse dimension. The endometrial lining measures 10 mm in composite thickness. The right ovary measures 3.6 x 2.7 x 2.2 cm in size and the left ovary measures 4.2 x 2.3 x 2.5 cm. The ovaries demonstrate normal arterial and venous blood flow on color Doppler analysis. There are no suspicious fluid collections within the cul-de-sac. Nonvascular heterogeneous left ovarian cyst measures 2.1 x 1.6 x 1.6 cm. IMPRESSION: Right-sided subserosal fibroid measures 3.5 cm. Endometrial thickness 10 millimeters. Hemorrhagic left ovarian cyst. Dictated by Telly Carrillo MD @ 03/14/2025 6:40:50 AM (Electronically Signed)
== END 2025-03-13 16:30 | disposition home or self-care (01) ==
LOC: US 16:29
PROVIDERS: PCP Physician Assistant Medical; Visit Provider Physician Assistant
DX: N92.0 Excessive and frequent menstruation with regular cycle (principal); D25.2 Subserosal leiomyoma of uterus; R93.89 Abnormal findings on diagnostic imaging of other specified body structures; N83.202 Unspecified ovarian cyst, left side
CPT/HCPCS: 76830; 76856